=== PATIENT | male | born 1990 | race Hispanic/Latino ===

== ENCOUNTER 2023-01-01 22:42 | Emergency (ER) | payer OTHER ==
[~2023-01-01] VITALS: Ht 165.1 cm; Wt 82.6 kg
[2023-01-01] MEDS ORDERED: FAMOTIDINE 20MG VIAL IV ONE ×2 (23:00→23:30)
[2023-01-01] MEDS ORDERED: SOLU-MEDROL 125MG VIAL ONE (23:00)
[2023-01-01] MEDS ORDERED: DiphenhydrAMINE HCL 50 MG/ML VIAL ONE (23:00)
[2023-01-01] MEDS ORDERED: EPINEPHRINE PF 1MG (1:1,000) 1 MG/ML AMP ONE (23:02)
[2023-01-01] MEDS ORDERED: ONDANSETRON 4MG INJ ONE (23:09)
[2023-01-01 23:30] LABS: BASOPHILS % (AUTO) 0.6 % (0.0-5.0); EOSINOPHILS % (AUTO) 3.7 % (0.0-8.0); HEMATOCRIT 47.9 % (42-54); LYMPHOCYTES % (AUTO) 23.7 % (21.0-51.0); MEAN CORPUSCULAR HEMOGLOBIN 29.6 pg (27.0-33.0); MEAN CORPUSCULAR HGB CONC 33.2 g/dL (32.0-36.0); MEAN CORPUSCULAR VOLUME 89.2 fL (79-99); MONOCYTES % (AUTO) 9.4 % (3.0-13.0); NEUTROPHILS % (AUTO) 62.2 % (40.0-77.0); PLATELET COUNT (AUTO) 268 K/uL (130-400); RED BLOOD CELL COUNT(AUTO) 5.37 MIL/uL (4.50-6.20); RED CELL DISTRIBUTION WIDTH 13.4 % (11.0-15.5); WHITE BLOOD COUNT (AUTO) 8.3 K/uL (4.8-10.8)
[2023-01-01] MEDS ORDERED: ONDANSETRON 4MG INJ IVP ONE (23:30)
[2023-01-01] MEDS ORDERED: EPINEPHRINE PF 1MG (1:1,000) 1 MG/ML AMP SQ ONE (23:30)
[2023-01-01] MEDS ORDERED: SOLU-MEDROL 125MG VIAL IVP ONE (23:30)
[2023-01-01] MEDS ORDERED: DiphenhydrAMINE HCL 50 MG/ML VIAL IV ONE (23:30)
[2023-01-01 23:40] LABS: CREATININE 0.9 mg/dL (0.5-1.5); POTASSIUM 3.2 mmol/L (3.5-5.1)
[2023-01-01 23:51] LABS: TOTAL PROTEIN, SERUM 7.6 g/dL (6.0-8.3)
[2023-01-02] MEDS ORDERED: DiphenhydrAMINE HCL 50 MG/ML VIAL IV ONE (00:30)
[2023-01-02] MEDS ORDERED: FAMO40TA7 PO (02:48)
[2023-01-02] MEDS ORDERED: PRED20TA3 PO (02:48)
[2023-01-02] MEDS ORDERED: EPIN0.3P19 IJ (02:48)
[2023-01-02] MEDS ORDERED: DIPH-1242 PO (02:48)
[2023-01-02 02:49] VITALS: BP 125/60
== END 2023-01-02 03:01 | disposition home or self-care (01) ==
LOC: EDH 22:42
DX: T78.49XA Other allergy, initial encounter (principal); R06.02 Shortness of breath; X58.XXXA Exposure to other specified factors, initial encounter
CPT/HCPCS: 99284; 96374; 96375; 80053; 85025; 36415; 96376; 96372; J1200 ×2; J3490; J2930; J0171; J2405